=== PATIENT | female | born 1990 | race American Indian/Alaskan Native ===

== ENCOUNTER 2020-04-11 11:49 | Day surgery (SDC) | payer MEDICAID ==
[2020-04-11] VITALS (11 sets, daily range): BP systolic 116–141; BP diastolic 65–85
[~2020-04-11] VITALS: Ht 170.2 cm; Wt 98.0 kg
[2020-04-11] MEDS ORDERED: cefazolin/dext.iso 2gm/50ml 50 ML IV ONE (12:00)
[2020-04-11] MEDS ORDERED: ringers solution, lacted 1,000 ML IV SCH ×2 (12:00→14:51)
[2020-04-11] MEDS ORDERED: famotidine 20mg tablet PO ONE (12:00)
[2020-04-11] MEDS ORDERED: AMOX-422 PO (13:10)
[2020-04-11] MEDS ORDERED: AMOX-117 PO (13:21)
[2020-04-11] MEDS ORDERED: BUPIVAcaine/PF 2.5 mg/ml (0.25%) 30ml vial ONE (14:07)
[2020-04-11] MEDS ORDERED: sevoflurane 250ml liquid IH ONE (14:13)
[2020-04-11] MEDS ORDERED: glycopyrrolate 0.2mg/ml inj ONE (14:13)
[2020-04-11] MEDS ORDERED: neostigmine methylsulfate 1 MG/ML 10ml vial ONE (14:13)
[2020-04-11] MEDS ORDERED: ondansetron/PF 4mg/2ml inj ONE ×2 (14:13→14:28)
[2020-04-11] MEDS ORDERED: midazolam 2 mg/2 ml injection ONE (14:16)
[2020-04-11] MEDS ORDERED: fentaNYL/PF 50MCG/1 ML 2ML syringe ONE ×2 (14:16→15:16)
[2020-04-11] MEDS ORDERED: propofol inj 20 ML IV ONE (14:16)
[2020-04-11] MEDS ORDERED: rocuronium 10mg/ml inj IV ONE (14:29)
[2020-04-11] MEDS ORDERED: ondansetron/PF 4mg/2ml inj IV PRN (14:55)
[2020-04-11] MEDS ORDERED: proCHLORperazine 10 MG/2 ml inj IV PRN (14:55)
[2020-04-11] MEDS ORDERED: morphine 2 MG/ML inj. syringe IV PRN (14:55)
[2020-04-11] MEDS ORDERED: morphine 4 MG/ML inj SYRINge IV PRN (14:55)
[2020-04-11] MEDS ORDERED: meperidine/PF 25mg/ml syringe IV PRN ×3 (14:55)
[2020-04-11] MEDS ORDERED: acetaminophen 1,000mg/100ml IV 100 ML IV ONE (15:02)
--- NOTE | 2020-04-11 15:30 | NUR ---
Received from OR via BED , accompanied by Anesthesiologist DR WRIGHT and report given by Anesthesiolgist. PATIENT WAKING UP, DENIES PAIN, V/S WNL, NEUROVASCULAR CHECKS INTACT, 20G PIV LUE, SCD ON, BANDAIDS TO LAP SIGHTS OF ABDOMEN CDI.
--- NOTE | 2020-04-11 17:00 | NUR ---
PATIENT A&OX4, DENIES PAIN, V/S WNL, NEUROVASCULAR CHECKS INTACT, 20G PIV LUE D/C, SCD OFF, BANDAIDS TO LAP SIGHTS OF ABDOMEN CDI. I HAVE REVIEWED D/C INSTRUCTIONS WITH PATIENT AND FAMILY AND THEY HAVE VERBALIZED UNDERSTANDING. PATIENT D/C HOME WITH ALL BELONGINGS AND FAMILY GAVE TRANSPORT HOME.
== END 2020-04-11 17:00 | disposition home or self-care (01) ==
LOC: PAS 11:49
PROVIDERS: ATTEND Surgery
DX: O99.63 Diseases of the digestive system complicating the puerperium (principal); K80.12 Calculus of gallbladder with acute and chronic cholecystitis without obstruction; Z87.891 Personal history of nicotine dependence
CPT/HCPCS: 47562; 82948; J0131; J2175; J2250; J2405; J2704; J2710; J3010; J3490; J7120; A4215; A4618; A7000